=== PATIENT | female | born 1960 | race Caucasian/White ===

== ENCOUNTER 2019-01-20 05:27 | Observation (INO) ==
[2019-01-20] MEDS ORDERED: Aspirin 81 MG TAB.CHEW PO ONE (05:41)
[2019-01-20 05:51] LABS: Basophils # 0.1 K/mcL (0.0-0.2); Basophils % 0.8 %; Eosinophils # 0.2 K/mcL (0.0-0.6); Eosinophils % 2.4 %; Hematocrit 40.1 % (35.3-44.9); Hemoglobin 13.9 g/dL (11.5-15.4); Immature Granulocytes % 0.3 % (0-4); Lymphocytes # 2.3 K/mcL (0.6-4.6); Lymphocytes % 36.1 %; Mean Corpuscular HGB Conc 34.7 g/dL (31.6-35.5); Mean Corpuscular Hemoglobin 31.2 pg (28.0-33.3); Mean Corpuscular Volume 89.9 fL (83.0-100.0); Mean Platelet Volume 8.9 fL (9.4-12.4); Monocytes # 0.5 K/mcL (0.0-1.3); Monocytes % 7.3 %; Neutrophils # 3.4 K/mcL (1.6-8.9); Platelet Count 245 K/mcL (140-400); Red Blood Count 4.46 M/mcL (3.82-4.97); Red Cell Distribution Width 12.1 % (11.5-14.5); Segmented Neutrophils % 53.1 %; White Blood Count 6.3 K/mcL (4.3-11.1)
[2019-01-20] MEDS ORDERED: Hyoscyamine SL 0.125 MG TAB.SUBL SL ONE (06:04)
[2019-01-20] MEDS ORDERED: Ketorolac 15 MG/ML VIAL IM ONE (06:04)
[2019-01-20 06:15] LABS: BUN/Creatinine Ratio 17 (6-26); Blood Urea Nitrogen 14 mg/dL (6-20); Calcium 9.3 mg/dL (8.6-10.3); Carbon Dioxide 28 mEq/L (23-29); Chloride 102 mEq/L (98-107); Glucose 110 mg/dL (70-105); Osmolality,Calculated 289 (280-300); Potassium 3.7 mEq/L (3.5-5.1); Sodium 139 mEq/L (136-145); Troponin I < 0.03 ng/mL (< 0.04); eGFR For African Americans > 60 (> 60); eGFR For Non-African Americans > 60 (> 60)
[2019-01-20] MEDS ORDERED: Ondansetron 4 MG/2 ML VIAL IVP ONE (06:43)
[2019-01-20] MEDS ORDERED: Morphine Sulfate 2 MG/ML SYRINGE IVP ONE (06:47)
[2019-01-20] MEDS ORDERED: 0.9 % Sodium Chloride 1,000 ML IVC ONE (06:52)
[2019-01-20] MEDS ORDERED: Nitroglycerin 0.4 MG TAB.SUBL SL PRN (07:04)
[2019-01-20] MEDS ORDERED: Naloxone 0.4 MG/ML INJ IVP PRN (07:24)
[2019-01-20] MEDS ORDERED: Ondansetron 4 MG/2 ML VIAL IVP PRN (07:24)
[2019-01-20] MEDS: Aspirin Enteric Coated 81 MG Tablet PO SCH (09:33)
[2019-01-20] MEDS: amLODIPine 5 MG TABLET PO SCH (09:34)
[2019-01-20] MEDS: hydroCHLOROthiazide 25 MG TABLET PO SCH (09:34)
[2019-01-20] MEDS ORDERED: *HR* Promethazine 25 MG/ML VIAL IVP PRN (11:10)
[2019-01-20] MEDS ORDERED: Acetaminophen 325 MG TABLET PO ONE (20:37)
[2019-01-21 01:46] LABS: Basophils # 0.1 K/mcL (0.0-0.2); Basophils % 0.9 %; Eosinophils # 0.2 K/mcL (0.0-0.6); Eosinophils % 2.8 %; Hematocrit 36.3 % (35.3-44.9); Immature Granulocytes % 0.2 % (0-4); Lymphocytes # 1.8 K/mcL (0.6-4.6); Lymphocytes % 33.6 %; Mean Corpuscular HGB Conc 33.3 g/dL (31.6-35.5); Mean Corpuscular Hemoglobin 30.7 pg (28.0-33.3); Mean Corpuscular Volume 92.1 fL (83.0-100.0); Mean Platelet Volume 9.3 fL (9.4-12.4); Monocytes # 0.4 K/mcL (0.0-1.3); Monocytes % 7.5 %; Neutrophils # 2.9 K/mcL (1.6-8.9); Platelet Count 218 K/mcL (140-400); Red Blood Count 3.94 M/mcL (3.82-4.97); Red Cell Distribution Width 12.5 % (11.5-14.5); White Blood Count 5.4 K/mcL (4.3-11.1)
[2019-01-21 01:52] LABS: Hemoglobin 12.1 g/dL (11.5-15.4)
[2019-01-21 02:04] LABS: Chol/HDL Ratio 3.9 (0-4.9)
[2019-01-21 02:06] LABS: BUN/Creatinine Ratio 19 (6-26); Blood Urea Nitrogen 15 mg/dL (6-20); Calcium 8.8 mg/dL (8.6-10.3); Carbon Dioxide 27 mEq/L (23-29); Chloride 101 mEq/L (98-107); Glucose 100 mg/dL (70-105); Magnesium 2.2 mg/dL (1.6-2.6); Osmolality,Calculated 287 (280-300); Potassium 3.6 mEq/L (3.5-5.1); Sodium 138 mEq/L (136-145); eGFR For African Americans > 60 (> 60); eGFR For Non-African Americans > 60 (> 60)
[2019-01-21] MEDS ORDERED: Regadenoson 0.4 MG/5 ML SYRINGE IVP ONE (06:25)
[2019-01-21] MEDS: Aspirin Enteric Coated 81 MG Tablet PO SCH (09:17)
[2019-01-21] MEDS: amLODIPine 5 MG TABLET PO SCH (09:17)
[2019-01-21] MEDS: hydroCHLOROthiazide 25 MG TABLET PO SCH (09:18)
[2019-01-21] MEDS ORDERED: Acetaminophen/Aspirin/Caffeine TABLET PO PRN (12:56)
[2019-01-21 13:04] LABS: Estimated Average Glucose 103 mg/dl
[2019-01-21 14:13] VITALS: BP 135/79
== END 2019-01-21 14:44 | disposition home or self-care (01) ==
LOC: EMEROOARM 05:27 → 3ANU 05:27 → SUATTDRO 08:13 → 3ANU 09:18
PROVIDERS: ADMIT Internal Medicine; ATTEND Internal Medicine